=== PATIENT | male | born 1975 | race Caucasian/White ===

== ENCOUNTER 2024-11-25 06:35 | Day surgery (SDC) | payer OTHER ==
[2024-11-13 15:13] VITALS: BMI 30.7
[2024-11-25] MEDS ORDERED: MIDAZOLAM HCL 2 MG/2 ML SINGLE DOSE VIAL ONE (10:25)
[2024-11-25 11:10] VITALS: TEMP 97.3
[2024-11-25 11:36] VITALS: BP 104/55; RESP 19
[2024-11-25 13:11] VITALS: PULSE 53
== END 2024-11-25 11:45 | disposition home or self-care (01) ==
LOC: JASU-ENDO 06:35
PROVIDERS: ATTEND Internal Medicine Gastroenterology
PROC: 0DJD8ZZ Inspection of Lower Intestinal Tract, Via Natural or Artificial Opening Endoscopic (ICD-10-PCS; principal; 2024-11-25 09:30)
DX: Z12.11 Encounter for screening for malignant neoplasm of colon (principal); K57.30 Diverticulosis of large intestine without perforation or abscess without bleeding; K64.8 Other hemorrhoids